=== PATIENT | male | born 1980 | race Caucasian/White ===

== ENCOUNTER → 2024-07-21 | Emergency (ER) | payer OTHER ==
[~2024-07-21] VITALS: Ht 180.3 cm; Wt 117.4 kg
[~2024-07-21] MED LIST: CYCL5TAB MT; LIDO700A15 TP; NAPR-1176 MT
[2024-07-21 10:03] VITALS: O2SAT 98
[2024-07-21] MEDS: CYCLOBENZAPRINE 10MG TABLET PO PRN (11:22)
[2024-07-21] MEDS: KETOROLAC 15MG/ML VIAL IM ONE (11:22)
[2024-07-21 12:10] VITALS: BP 132/89; PULSE 99; RESP 18; TEMP 36.78072; O2SAT 98
== END ==
LOC: ER 09:49
DX: M54.50 Low back pain, unspecified (principal)
CPT/HCPCS: 99283; 96372; J1885

== ENCOUNTER 2025-01-21 11:37 | Emergency (ER) | payer OTHER ==
[~2025-01-21] VITALS: Ht 180.3 cm; Wt 113.0 kg
[~2025-01-21 11:37] MED LIST changes: -CYCL5TAB MT; +CYCL5TAB3 MT
[2025-01-21 11:49] VITALS: BP 143/89; RESP 16; TEMP 36.9; O2SAT 99
[2025-01-21 12:04] VITALS: O2SAT 98
[2025-01-21 12:57] VITALS: PULSE 88
[2025-01-21] MEDS ORDERED: METH-653 MT (13:02)
[2025-01-21] MEDS: KETOROLAC 30MG/ML VIAL IM ONE (13:24)
== END 2025-01-21 13:29 | disposition home or self-care (01) ==
LOC: ER 11:37
DX: M54.50 Low back pain, unspecified (principal); Z79.1 Long term (current) use of non-steroidal anti-inflammatories (NSAID)
CPT/HCPCS: 99283; 96372; J1885